=== PATIENT | female | born 1990 | race Caucasian/White ===

== ENCOUNTER 2019-01-02 13:34 | Outpatient (CLI) | payer BC | END 2019-01-02 13:35 | disposition critical access hospital (66) | LOC: EMS 13:34 | PROVIDERS: ATTEND Surgery | DX: S01.21XA Laceration without foreign body of nose, initial encounter (principal); W21.07XA Struck by softball, initial encounter; Y93.64 Activity, baseball; Y92.320 Baseball field as the place of occurrence of the external cause | CPT/HCPCS: A0425; A0427 ==

== ENCOUNTER 2019-01-02 14:09 | Emergency (ER) | payer BC ==
[2019-01-02] MEDS ORDERED: TRANEXAMIC ACID 1,000 MG/10 ML VIAL NAS STA (14:20)
--- NOTE | 2019-01-02 14:20 | ED Physician Documentation ---
History of Present Illness - Stated complaint Stated Complaint: NOSE LAC - History obtained from History obtained from: Patient, EMS - History of Present Illness Timing: Today Pain level max: 8 Pain level now: 6 Improved by: nothing Worsened by: palpation - Additonal information Additional information: softball vs face. no LOC. + nausea. no vomiting. drowsy. bleeding from the B nares. laceration to the nose. Review of Systems Constitutional: denies: Fever, Chills Nose: reports: Epistaxis Throat: denies: Sore throat Cardiac: denies: Chest pain / pressure Respiratory: denies: Cough GI: denies: Vomiting, Diarrhea Skin: denies: Rash Musculoskeletal: denies: Neck pain, Back pain Neurologic: denies: Focal weakness, Numbness, LOC PD PAST MEDICAL HISTORY - Past Medical History Past Medical History: No - Past Surgical History Past Surgical History: No - Present Medications Home Medications: Ambulatory Orders Medication Instructions Recorded Confirmed Cephalexin [Keflex] 500 mg PO Q6H #28 capsule 01/02/19 Oxycodone HCl/Acetaminophen 1 - 2 each PO Q6H PRN #14 tablet 01/02/19 [Percocet 5-325 mg Tablet] - Allergies Allergies/Adverse Reactions: Allergies Allergy/AdvReac Type Severity Reaction Status Date / Time No Known Drug Allergies Allergy Verified 01/02/19 14:20 - Living Situation Living Situation: reports: With family Living Arrangement: reports: At home - Social History Does the pt have substance abuse?: No - Family History Family history: reports: Non contributory - Immunizations Immunizations are current?: No Immunizations: TDAP >10years/unknown PD ED PE NORMAL - Vitals Vital signs reviewed: Yes - General General: Alert and oriented X 3, No acute distress, Well developed/nourished - HEENT HEENT: PERRL, Ears normal, Moist mucous membranes, Pharynx benign, Dentition benign, Other (Significant swelling and mild deformity to the bridge of the nose. Epistaxis from the bilateral nares. 2 cm vertical laceration to the right side of the nose. Not through and through. No other facial bone tenderness. No scalp hematomas or palpable fractures other than the nasal bridge) - Neck Neck: Supple, no meningeal sign, No bony TTP (FROM without pain) - Cardiac Cardiac: RRR - Respiratory Respiratory: No respiratory distress, Clear bilaterally - Abdomen Abdomen: Soft, Non tender, Non distended - Derm Derm: Warm and dry - Neuro Neuro: Alert and oriented X 3, long term care social worker 2-12 intact, No motor deficit, No sensory deficit, Normal speech Eye Opening: Spontaneous Motor: Obeys Commands Verbal: Oriented GCS Score: 15 - Psych Psych: Normal mood, Normal affect Results - Vitals Vitals: Vital Signs - 24 hr 01/02/19 01/02/19 14:17 16:53 Temperature 36.1 C L Heart Rate 58 L 78 Respiratory 16 18 Rate Blood Pressure 126/74 121/74 O2 Saturation 100 98 Oxygen O2 Source Room air - Rads (name of study) head CT Radiology: Prelim report reviewed, EMP read contemporaneously, See rad report (No acute intracranial abnormality) maxillofacial CT Radiology: Prelim report reviewed, EMP read contemporaneously, See rad report (Comminuted bilateral nasal bone fractures with markedly displaced fracture fragment on the left, displaced by 4 mm (series 3 image 96). 2. At least 2 separate fractures through the bony nasal septum. ) Procedures - Laceration (location) R nose Length in cm: 2 Wound type: Linear, Into subcut fat, Clean Neurovascular status: Sensory intact, Motor intact, Vascular intact Anesthesia: OTH (topical lidocaine) Wound Preparation: Irrigated copiously NS, Wound explored, To the base Skin layer closure: Dermabond, Steri strips Other: Patient tolerated well, No complications, Neurovascular intact, Tetanus booster given (tdap) Complexity: Simple PD MEDICAL DECISION MAKING - ED course Complexity details: reviewed results, re-evaluated patient, considered differential, d/w patient ED course: Epistaxis resolved with tranexamic soaked gauze. Laceration repaired with Steri-Strips and Dermabond. Pain well controlled. Will place on oral antibiotics and follow-up with the ENT when she returns home in 2 days. Patient counseled regarding signs and symptoms for which I believe and urgent re- evaluation would be necessary. Patient with good understanding of and agreement to plan and is comfortable going home at this time This document was made in part using voice recognition software. While efforts are made to proofread this document, sound alike and grammatical errors may occur. Departure - Departure Disposition: 01 Home, Self Care Clinical Impression: Nasal bone fractures Qualifiers: Encounter type: initial encounter Fracture type: closed Qualified Code(s): S02.2XXA - Fracture of nasal bones, initial encounter for closed fracture Nasal laceration Qualifiers: Encounter type: initial encounter Qualified Code(s): S01.21XA - Laceration without foreign body of nose, initial encounter Condition: Good Instructions: ED Fx Nasal Conf W X Ray, ED Laceration Facial Skin Glue Follow-Up: Your,doctor in 1 week [Other] Prescriptions: Cephalexin [Keflex] 500 mg PO Q6H #28 capsule Oxycodone HCl/Acetaminophen [Percocet 5-325 mg Tablet] 1 - 2 each PO Q6H PRN #14 tablet PRN Reason: pain Comments: Return if you worsen. You can use Afrin in the nose twice a day for the next 3 days. Take all antibiotics until gone. Return if you notice redness, swelling or drainage from the wound. You should follow-up with your doctor within the next week and to be referred to an ENT for follow-up once the swelling has decreased. Do not blow or place anything in your nose. Do not drink alcohol or drive while on narcotic pain medicine. Note that many narcotic pain relievers also contain tylenol/acetaminophen. Please ensure that your total dose of acetaminophen from all sources does not exceed 3 grams (3000mg) per day. You may constipated on this medication, take a stool softener such as "Colace" twice a day while you are on it. Also recommend a [id number] laxative such as senna or MiraLAX any day that you do not have a bowel movement. If you received narcotic pain medication in the emergency department, do not drive or operate machinery for the next 24 hours. Discharge Date/Time: 01/02/19 16:57
[2019-01-02] MEDS ORDERED: HYDROmorphone 1 MG/ML CARPUJECT IVP STA ×2 (14:28→15:45)
--- NOTE | 2019-01-02 15:18 | CT Report ---
Reason: softball vs head Procedure Date: 01/02/2019 Accession Number: [id number] / [id number] Procedure: CT - HEAD WO CPT Code: FULL RESULT: EXAM: CT HEAD WITHOUT CONTRAST COMPARISON: FACIAL BONES W/O 01/02/2019 2:44 PM. CLINICAL HISTORY: Softball versus head. Hit in nose with softball. TECHNIQUE: Axial CT images were obtained from the foramen magnum to the vertex without contrast In accordance with CT protocol optimization, one or more of the following dose reduction techniques were utilized for this exam: automated exposure control, adjustment of mA and/or KV based on patient size, or use of iterative reconstructive technique. FINDINGS: No intracranial hemorrhage. No masses. Mastoids are clear. Middle ears are clear. Temporomandibular joints are normally located. Zygomatic arches are intact. Incompletely characterized are extensive nasal bone and nasal septal fractures, further evaluation deferred to maxillofacial CT scan. IMPRESSION: No intracranial hemorrhage, masses, or other discrete acute intracranial process identified. Fairly extensive nasal bone and nasal septal fractures are noted, further evaluation deferred to dedicated maxillofacial CT.
--- NOTE | 2019-01-02 15:21 | CT Report ---
Reason: softball vs head Procedure Date: 01/02/2019 Accession Number: [id number] / [id number] Procedure: CT - MAXILLOFACIAL WO CPT Code: FULL RESULT: EXAM: CT MAXILLOFACIAL WITHOUT CONTRAST EXAM DATE: 01/02/2019 02:53 PM. CLINICAL HISTORY: 28-year-old female. Softball vs head. COMPARISONS: HEAD W/O 01/02/2019 2:44 PM. TECHNIQUE: Thin-section axial images were acquired of the face without contrast. Post-processing: Coronal and sagittal reformats. Other: None. In accordance with CT protocol optimization, one or more of the following dose reduction techniques were utilized for this exam: automated exposure control, adjustment of mA and/or KV based on patient size, or use of iterative reconstructive technique. FINDINGS: Soft Tissue: There is soft tissue edema overlying the nasal fractures. The infratemporal fossa and parapharyngeal spaces are unremarkable. Orbits: Symmetric and unremarkable. Bones: Comminuted bilateral nasal bone fractures with markedly displaced fracture fragment on the left, displaced by 4 mm (series 3 image 96). At least 2 separate fractures through the bony nasal septum. Temporomandibular Joints: The temporomandibular joints are symmetric and normally located. Sinuses: Normal. No mucosal thickening or fluid levels. Other: None. IMPRESSION: 1. Comminuted bilateral nasal bone fractures with markedly displaced fracture fragment on the left, displaced by 4 mm (series 3 image 96). 2. At least 2 separate fractures through the bony nasal septum. RADIA
[2019-01-02] MEDS ORDERED: LIDOCAINE JELLY 2% 5 ML TUBE TOP STA (15:44)
[2019-01-02] MEDS ORDERED: oxyCODONE 5 MG TABLET PO STA (15:49)
[2019-01-02] MEDS ORDERED: TETANUS/DIPHTHERIA/PERTUSSIS 0.5 ML SYRINGE IM ONE (16:40)
[2019-01-02 16:54] VITALS: BP 121/74
== END 2019-01-02 16:57 | disposition home or self-care (01) ==
LOC: EDUNIT# → ED 14:09
DX: S01.21XA Laceration without foreign body of nose, initial encounter (principal); S02.2XXA Fracture of nasal bones, initial encounter for closed fracture; W21.07XA Struck by softball, initial encounter; Y93.64 Activity, baseball
CPT/HCPCS: 12011; 70450; 70486; 90471; 90715; 96374; 96376; 99284; A9270; J1170; J3490